=== PATIENT | female | born 1935 | race Caucasian/White ===

== ENCOUNTER 2018-08-30 16:26 | Observation (INO) ==
--- NOTE | 2018-08-30 16:57 | Emergency Department Note ---
Disposition Clinical Impression: GI bleed Qualifiers: GI bleed type/associated pathology: unspecified gastrointestinal hemorrhage type Qualified Code(s): K92.2 - Gastrointestinal hemorrhage, unspecified Anemia Qualifiers: Anemia type: iron deficiency Iron deficiency anemia type: chronic blood loss Qualified Code(s): D50.0 - Iron deficiency anemia secondary to blood loss (chronic) Disposition: Admitted As Inpatient Condition: Fair Referrals: Bear,Franchesca Farooq CNP [Primary Care Provider] - Forms: ED Satisfaction Letter General Adult HPI - General Chief complaint: ED Dizziness Stated complaint: Cough dizzy Time Seen by Provider: 08/30/18 16:31 Source: EMS Limitations: no limitations Nursing Notes Reviewed: Yes Vital Signs Reviewed: Yes - History of Present Illness Pain Scale: 0 - Related Data Home Medications Medication Instructions Recorded Confirmed Alendronate Sodium [Fosamax] 70 mg PO QWEEK 01/13/16 01/13/16 Celecoxib [Celebrex] 200 mg PO DAILY 01/13/16 01/13/16 Erythromycin OPTH Oint 1 appl OP BID 01/13/16 01/13/16 GuaiFENesin/Dextromethorphan 10 ml PO Q4H PRN 01/13/16 01/13/16 [Tussin Dm Syrup] Melatonin 5 mg PO HS 01/13/16 01/13/16 Mirabegron [Myrbetriq] 50 mg PO DAILY 01/13/16 01/13/16 Omeprazole [PriLOSEC] 20 mg PO PRN PRN 01/13/16 01/13/16 Previous Rx's Medication Instructions Recorded Albuterol Sulfate [Albuterol 1 puff IH Q6HR PRN #1 hfa.aer.ad 01/18/16 Inhaler] HYDROcodone BIT/Homatropine 5 mg PO Q12HR PRN #20 tablet 01/18/16 [Hycodan] levoFLOXacin [Levaquin] 500 mg PO DAILY #2 tablet 01/18/16 Benzonatate [Tessalon] 200 mg PO TID PRN #30 capsule 08/13/16 Doxycycline 100 mg PO BID #14 capsule 08/13/16 GuaiFENesin ER [Mucinex] 600 mg PO BID #20 tbbp.12hr 08/13/16 Azithromycin [Azithromycin 6-Tab 250 mg PO PER PKG DI #6 tab 07/29/17 Pack] Benzonatate [Tessalon] 200 mg PO TID PRN #30 capsule 07/29/17 Guaifenesin [Mucinex] 600 mg PO BID #20 tab.er.12h 07/29/17 Allergies Allergy/AdvReac Type Severity Reaction Status Date / Time lisinopril Allergy Anaphylaxis Verified 01/13/16 05:16 Sulfa (Sulfonamide AdvReac Flushing Verified 08/30/18 16:43 Antibiotics) Past Medical History - Past Medical History Medical history: Reports: GERD, hyperlipidemia, hypertension, osteoporosis, other Surgical history: Reports: appendectomy Psychiatric history: Reports: no psych history CHOIR DIRECTOR history: Reports: no CHOIR DIRECTOR history - Social History Smoking Status: Former smoker Smokeless Tobacco Status: No Alcohol use: Reports: occasionally Drug use: Reports: none Physical Exam - General Limitations: no limitations General appearance: alert, in no apparent distress Course Vital Signs Temperature 98.2 F 08/30/18 16:31 Pulse Rate 67 08/30/18 16:31 Respiratory Rate 18 08/30/18 16:31 Blood Pressure 143/69 08/30/18 16:31 O2 Sat by Pulse Oximetry 95 08/30/18 16:31 Temperature 98.2 F 08/30/18 16:31 Pulse Rate 67 08/30/18 18:03 Respiratory Rate 18 08/30/18 18:03 Blood Pressure 109/79 08/30/18 18:03 O2 Sat by Pulse Oximetry 95 08/30/18 18:03 Oxygen Delivery Oxygen Delivery Room Air Medical Decision Making - [facility] Narrative Medical decision making narrative: Chest X-Ray 08/30/18 16:54 IMPRESSION: No acute cardiopulmonary disease. D/ / Otis Ortega MD / Otis Ortega MD Interpreting Provider: Otis Ortega MD 1724 hrs.: Chest x-ray is back and shows nonacute pattern. Were waiting on labs. Then reassessment. 1810 hrs.: Guaiac is positive. No gross blood. She is a history of GERD's I wonder if she has had a slow bleed we have not had a labs in the last 6 months. And when they did that it was normal. Were going to bring her into the hospital with her syncope GI bleed and symptomatic anemia. - Lab Data Result diagrams: 08/30/18 16:55 08/30/18 16:55 Lab Results 08/30/18 08/30/18 08/30/18 Range/Units 16:55 16:55 17:41 WBC 7.7 (4.3-11.1) K/mcL RBC 4.51 (3.82-4.97) M/mcL Hgb 8.9 L (11.5-15.4) g/dL Hct 30.5 L (35.3-44.9) % MCV 67.6 L (83.0-100.0) fL MCH 19.7 L (28.0-33.3) pg MCHC 29.2 L (31.6-35.5) g/dL RDW 17.2 H (11.5-14.5) % Plt Count 254 (140-400) K/mcL MPV 9.1 L (9.4-12.4) fL Immature Gran % 0.3 (0-4) % Seg Neutrophils % 54.1 % Lymphocytes % 26.4 % Monocytes % 14.0 % Eosinophils % 4.4 % Basophils % 0.8 % Neutrophils # 4.2 (1.6-8.9) K/mcL Lymphocytes # 2.0 (0.6-4.6) K/mcL Monocytes # 1.1 (0.0-1.3) K/mcL Eosinophils # 0.3 (0.0-0.6) K/mcL Basophils # 0.1 (0.0-0.2) K/mcL Platelet Estimate Normal (Normal) Hypochromasia Present A (Not Present) Anisocytosis 1+ A (Not Present) Microcytosis Present A (Not Present) Sodium 137 (136-145) mEq/L Potassium 4.0 (3.5-5.1) mEq/L Chloride 105 (98-107) mEq/L Carbon Dioxide 21 L (23-29) mEq/L BUN 10 (8-23) mg/dL Creatinine 0.95 (0.60-1.20) mg/dL Est GFR ( Amer) > 60 (> 60) Est GFR (Non-Af Amer) 56 L (> 60) BUN/Creatinine Ratio 11 (6-26) Glucose 125 H (70-105) mg/dL Calculated Osmolality 285 (280-300) Calcium 9.0 (8.6-10.3) mg/dL Troponin I 0.03 (< 0.04) ng/mL Stool Occult Bld Scrn Positive A (Negative) Attestation Statement - Attestation Attestation: This documentation is done with the assistance of Dragon dictation. Despite efforts made to ensure accuracy, there may be inaccuracies in net software architect or spelling and typographical errors. I examined this patient and my medical decision-making was reviewed with the Resident Physician. I agree with the documented findings, disposition and treatment plan as described except to the extent set forth below. Patient seen and evaluated with Dr. Zaidi and myself, I agree with his evaluation management plan, supervise care the patient's stay. Patient has a new history of COPD. Today she had a spell where she coughed and got very dizzy lightheaded lasted a few seconds and went away. She said she feels better now she says she does not need a breathing treatment she has no chest pain. She is also being worked up for a chronic lower extremity weakness issue with neurology here and then she will be following up at [facility] for that but that is why she is here today. We will check labs on her she does not want a breathing treatment chest x-ray then reassess. She is in agreement with plan.
[2018-08-30 17:10] LABS: Basophils # 0.1 K/mcL (0.0-0.2); Basophils % 0.8 %; Eosinophils # 0.3 K/mcL (0.0-0.6); Eosinophils % 4.4 %; Hematocrit 30.5 % (35.3-44.9); Hemoglobin 8.9 g/dL (11.5-15.4); Immature Granulocytes % 0.3 % (0-4); Lymphocytes % 26.4 %; Mean Corpuscular HGB Conc 29.2 g/dL (31.6-35.5); Mean Corpuscular Hemoglobin 19.7 pg (28.0-33.3); Mean Corpuscular Volume 67.6 fL (83.0-100.0); Mean Platelet Volume 9.1 fL (9.4-12.4); Monocytes # 1.1 K/mcL (0.0-1.3); Neutrophils # 4.2 K/mcL (1.6-8.9); Platelet Count 254 K/mcL (140-400); Red Blood Count 4.51 M/mcL (3.82-4.97); Red Cell Distribution Width 17.2 % (11.5-14.5); Segmented Neutrophils % 54.1 %
[2018-08-30 17:31] LABS: BUN/Creatinine Ratio 11 (6-26); Blood Urea Nitrogen 10 mg/dL (8-23); Carbon Dioxide 21 mEq/L (23-29); Chloride 105 mEq/L (98-107); Glucose 125 mg/dL (70-105); Osmolality,Calculated 285 (280-300); Sodium 137 mEq/L (136-145); Troponin I 0.03 ng/mL (< 0.04); eGFR For Non-African Americans 56 (> 60)
[2018-08-30 17:35] LABS: Anisocytosis 1+ (Not Present); Microcytosis Present (Not Present); Platelet Estimate Normal (Normal)
[2018-08-30 17:36] LABS: Hypochromasia Present (Not Present)
--- NOTE | 2018-08-30 17:58 | Emergency Department Note ---
Disposition Clinical Impression: GI bleed Qualifiers: GI bleed type/associated pathology: unspecified gastrointestinal hemorrhage type Qualified Code(s): K92.2 - Gastrointestinal hemorrhage, unspecified Anemia Qualifiers: Anemia type: iron deficiency Iron deficiency anemia type: chronic blood loss Qualified Code(s): D50.0 - Iron deficiency anemia secondary to blood loss (chronic) Disposition: Admitted As Inpatient Condition: Fair Referrals: Franchesca Sifuentes CNP [Primary Care Provider] - Forms: ED Satisfaction Letter Time of Disposition: 19:02 General Adult HPI - General Chief complaint: ED Dizziness Stated complaint: Cough dizzy Time Seen by Provider: 08/30/18 16:31 Source: patient, EMS Mode of arrival: EMS Limitations: no limitations Nursing Notes Reviewed: Yes Vital Signs Reviewed: Yes - History of Present Illness HPI Narrative: Patient is a 83-year-old female past medical history of GERD, HLD, HTN and osteoporosis presents to the emergency department for evaluation of episode of dizziness that occurred prior to arrival. Patient states that yesterday she began having a cough as productive sputum that is yellowish/white. States she has a history of COPD which she is supposed to be taking inhaled steroids. States today she was sitting down and had a very hard coughing fit. States at that time she became dizzy with the room spinning which lasted about 5 minutes. States her symptoms resolved on their own. His at this time she is a symptomatically except for her cough. Patient also states that she is been getting worked up by Dr. Aparicio as well as Dr. Benoit for evaluation of bilateral lower extremity weakness since 6 months ago. Pain Scale: 0 - Related Data Home Medications Medication Instructions Recorded Confirmed Alendronate Sodium [Fosamax] 70 mg PO QWEEK 01/13/16 01/13/16 Celecoxib [Celebrex] 200 mg PO DAILY 01/13/16 01/13/16 Erythromycin OPTH Oint 1 appl OP BID 01/13/16 01/13/16 GuaiFENesin/Dextromethorphan 10 ml PO Q4H PRN 01/13/16 01/13/16 [Tussin Dm Syrup] Melatonin 5 mg PO HS 01/13/16 01/13/16 Mirabegron [Myrbetriq] 50 mg PO DAILY 01/13/16 01/13/16 Omeprazole [PriLOSEC] 20 mg PO PRN PRN 01/13/16 01/13/16 Previous Rx's Medication Instructions Recorded Albuterol Sulfate [Albuterol 1 puff IH Q6HR PRN #1 hfa.aer.ad 01/18/16 Inhaler] HYDROcodone BIT/Homatropine 5 mg PO Q12HR PRN #20 tablet 01/18/16 [Hycodan] levoFLOXacin [Levaquin] 500 mg PO DAILY #2 tablet 01/18/16 Benzonatate [Tessalon] 200 mg PO TID PRN #30 capsule 08/13/16 Doxycycline 100 mg PO BID #14 capsule 08/13/16 GuaiFENesin ER [Mucinex] 600 mg PO BID #20 tbbp.12hr 08/13/16 Azithromycin [Azithromycin 6-Tab 250 mg PO PER PKG DI #6 tab 07/29/17 Pack] Benzonatate [Tessalon] 200 mg PO TID PRN #30 capsule 07/29/17 Guaifenesin [Mucinex] 600 mg PO BID #20 tab.er.12h 07/29/17 Allergies Allergy/AdvReac Type Severity Reaction Status Date / Time lisinopril Allergy Anaphylaxis Verified 01/13/16 05:16 Sulfa (Sulfonamide AdvReac Flushing Verified 08/30/18 16:43 Antibiotics) All systems ED: reviewed and negative except as stated. Review of Systems: As Per HPI Constitutional: Reports: other (dizziness). Denies: fever, chills Cardiovascular: Denies: chest pain, palpitations, dyspnea on exertion, edema, syncope Respiratory: Reports: cough, dyspnea, sputum production. Denies: wheezes Gastrointestinal: Denies: abdominal pain, nausea, vomiting Genitourinary: Denies: urgency Musculoskeletal: Denies: back pain, neck pain Integumentary: Denies: rash Past Medical History - Past Medical History Attestation: Yes The following information was validated with the patient. 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 history - Social History Smoking Status: Former smoker Smokeless Tobacco Status: No Alcohol use: Reports: occasionally Drug use: Reports: none Physical Exam CONSTITUTIONAL: Well-appearing; well-nourished; A&O X 3, in no apparent distress HEAD: Normocephalic; atraumatic EYES: PERRL, no scleral icterus NOSE: The nose is normal in appearance without rhinorrhea NECK: No JVD or distended neck veins RESP: Normal chest excursion with respiration; breath sounds clear and equal bilaterally; no wheezes, rhonchi, or rales CARD: Regular rhythm, without murmurs, rub or gallop ABD: Non-distended; non-tender, soft, without rigidity, rebound or guarding,no pulsatile mass CHEST: No pain with palpation SKIN: Normal for age and race; warm and dry without diaphoresis ; no apparent lesions EXTREMITIES: Pulses are 2 plus and equal times 4 extremities, no peripheral edema or calf muscle pain - General Limitations: no limitations General appearance: alert, in no apparent distress Course Course Narrative: Patient one isolated episode of dizziness that occurred after a coughing fit which she currently has due to her bronchitis. Plan at this time is for the patient undergo evaluation for her dizziness which will include troponin, EKG as well as a chest x-ray. Also perform basic lab work. - Reevaluation(s) Reevaluation #1: Labwork is remarkable for hemoglobin of 8.9. Troponin was negative. EKG was nonischemic. The patient's hemoglobin is new when compared to old labs in January 2018 and appears to be a significant drop. She underwent rectal evaluation for blood and stool occult blood was positive. Discussed plan at this time Time: 18:34 Reevaluation #2: Discussed the patient's case with the hospitalist on-call, Dr. Patel and he agrees to accept the patient for further evaluation of her GI bleed. Time: 19:02 Vital Signs Temperature 98.2 F 08/30/18 16:31 Pulse Rate 67 08/30/18 16:31 Respiratory Rate 18 08/30/18 16:31 Blood Pressure 143/69 08/30/18 16:31 O2 Sat by Pulse Oximetry 95 08/30/18 16:31 Temperature 98.2 F 08/30/18 16:31 Pulse Rate 67 08/30/18 18:03 Respiratory Rate 18 08/30/18 18:03 Blood Pressure 109/79 08/30/18 18:03 O2 Sat by Pulse Oximetry 95 08/30/18 18:03 Oxygen Delivery Oxygen Delivery Room Air Medical Decision Making - Medical Records Medical records reviewed: Yes I reviewed the patient's medical records. - Lab Data Lab results reviewed: Yes I reviewed the patient's lab results. Result diagrams: 08/30/18 16:55 08/30/18 16:55 Lab Results 08/30/18 08/30/18 08/30/18 Range/Units 16:55 16:55 17:41 WBC 7.7 (4.3-11.1) K/mcL RBC 4.51 (3.82-4.97) M/mcL Hgb 8.9 L (11.5-15.4) g/dL Hct 30.5 L (35.3-44.9) % MCV 67.6 L (83.0-100.0) fL MCH 19.7 L (28.0-33.3) pg MCHC 29.2 L (31.6-35.5) g/dL RDW 17.2 H (11.5-14.5) % Plt Count 254 (140-400) K/mcL MPV 9.1 L (9.4-12.4) fL Immature Gran % 0.3 (0-4) % Seg Neutrophils % 54.1 % Lymphocytes % 26.4 % Monocytes % 14.0 % Eosinophils % 4.4 % Basophils % 0.8 % Neutrophils # 4.2 (1.6-8.9) K/mcL Lymphocytes # 2.0 (0.6-4.6) K/mcL Monocytes # 1.1 (0.0-1.3) K/mcL Eosinophils # 0.3 (0.0-0.6) K/mcL Basophils # 0.1 (0.0-0.2) K/mcL Platelet Estimate Normal (Normal) Hypochromasia Present A (Not Present) Anisocytosis 1+ A (Not Present) Microcytosis Present A (Not Present) Sodium 137 (136-145) mEq/L Potassium 4.0 (3.5-5.1) mEq/L Chloride 105 (98-107) mEq/L Carbon Dioxide 21 L (23-29) mEq/L BUN 10 (8-23) mg/dL Creatinine 0.95 (0.60-1.20) mg/dL Est GFR ( Amer) > 60 (> 60) Est GFR (Non-Af Amer) 56 L (> 60) BUN/Creatinine Ratio 11 (6-26) Glucose 125 H (70-105) mg/dL Calculated Osmolality 285 (280-300) Calcium 9.0 (8.6-10.3) mg/dL Troponin I 0.03 (< 0.04) ng/mL Stool Occult Bld Scrn Positive A (Negative) - Radiology Data Radiology results reviewed: Yes I reviewed the patient's radiology results. Chest X-Ray 08/30/18 16:54 IMPRESSION: No acute cardiopulmonary disease. D/ / Otis Ortega MD / Otis Ortega MD Interpreting Provider: Otis Ortega MD - EKG Data EKG #1 EKG attestation: Yes I reviewed and interpreted this EKG. EKG results narrative: EKG done at 16:32 shows sinus rhythm at a rate of 61 bpm. Normal axis. Intervals within normal limits. Patient does have T-wave inversions in the lateral leads which appear unchanged from an old EKG done in December 2015.
[2018-08-30] MEDS ORDERED: Naloxone 0.4 MG/ML INJ IVP PRN (20:34)
[2018-08-30 21:38] LABS: Alanine Aminotransferase 8 Units/L (7-52); Albumin 3.8 g/dL (3.5-5.7); Albumin/Globulin Ratio 1.2 (1.1-2.2); Alkaline Phosphatase 63 Units/L (34-104); Aspartate Amino Transferase 14 Units/L (13-39); BUN/Creatinine Ratio 9 (6-26); Bilirubin,Total 0.4 mg/dL (0.3-1.0); Blood Urea Nitrogen 9 mg/dL (8-23); Carbon Dioxide 26 mEq/L (23-29); Chloride 104 mEq/L (98-107); Globulin 3.3 g/dL (2.4-3.5); Glucose 115 mg/dL (70-105); Osmolality,Calculated 284 (280-300); Sodium 137 mEq/L (136-145); Total Protein 7.1 g/dL (6.4-8.9); eGFR For Non-African Americans 56 (> 60)
[2018-08-30] MEDS: traZODone 50 MG TABLET PO SCH (22:08)
[2018-08-30] MEDS: 0.9 % Sodium Chloride 1,000 ML IVC SCH (22:09)
[2018-08-30] MEDS: Benzonatate 100 MG CAPSULE PO PRN (22:09)
[2018-08-30] MEDS: Acetaminophen 325 MG TABLET PO PRN (22:09)
--- NOTE | 2018-08-30 23:59 | Internal Med History&Physical ---
Date of Encounter: 08/30/18 Time of Encounter: 23:57 Internal Medicine - H&P: HPI Chief complaint: Dizziness/cough History of present illness: Ms. De Jesus is a 83 year old female past medical history of GERD, HLD, HTN and osteoporosis presents to the emergency department for evaluation of episode of dizziness that occurred prior to arrival. Patient states that yesterday she feels like she caught a cold and began having a cough productive of yellowish/white sputum. Earlier today she was sitting down and began having a coughing spell. She subsequently became dizzy and felt as if the room was spinning. Symptoms lasted approximately 5 minutes before resolving. Patient subsequently called the squad. Patient denies any abdominal pain but states that she has been having dark stools for the past 4-5 days. She also reports loose stools for the past couple days as well which was also relatively new for her. Patient states she does not eat well. She reports having a colonoscopy approximately 10 years ago. Patient is currently not on any blood thinners. Guillermo mauro takes antibiotics chronically for chronic UTI. On arrival patient was hemodynamically stable. Initial Labwork was remarkable for hemoglobin of 8.9. Fecal occult blood testing was positive. Chest x-ray was performed which showed no acute cardiopulmonary disease. Patient was typed and screened and started on IV fluids. Case was discussed with gastroenterology who will see patient in the morning. Past Med Surg Social Fam HX - Past Medical History Medical history: GERD, hyperlipidemia, hypertension, osteoporosis, other Additional medical history: insomnia, Vit. D deficiency, joint pain Psychiatric history: no psych history - Past Surgical History Surgical History: appendectomy, cholecystectomy, hysterectomy, other Additional surgical history: rotator cuff repair left - Social History Smoking Status: Former smoker Smokeless Tobacco Status: No Alcohol use: occasionally Drug use: none Internal Medicine - H&P: Meds Albuterol Sulfate [Albuterol Inhaler] 1 puff IH Q6HR PRN #1 hfa.aer.ad 01/18/16 [Rx] Cephalexin [Keflex] 250 mg PO DAILY 08/30/18 [History] Cholecalciferol (D-3) [Vitamin D] 1,000 unit PO DAILY 08/30/18 [History] Cyanocobalamin (B-12) [Vitamin B12] 1,000 mcg PO DAILY 08/30/18 [History] Omeprazole [PriLOSEC] 40 mg PO DAILY 08/30/18 [History] Propranolol [Inderal] 10 mg PO BID 08/30/18 [History] traZODone [TraZODone] 25 mg PO HS 08/30/18 [History] Allergy/AdvReac Type Severity Reaction Status Date / Time lisinopril Allergy Anaphylaxis Verified 01/13/16 05:16 Sulfa (Sulfonamide AdvReac Flushing Verified 08/30/18 16:43 Antibiotics) All Systems PM: A 10-system review of systems was performed and is negative for pertinent findings except as documented above in the HPI. - Constitutional Constitutional: no chills, no fever(s), no night sweats - EENT Eyes: no change in vision, no discharge, no pain, no photophobia Ears: no ear discharge, no ear pain, no tinnitus Nose, mouth and throat: no dysphagia, no nasal discharge, no neck pain, no sore throat - Cardiovascular Cardiovascular ROS IM: no chest pain, no diaphoresis, no dyspnea, no lightheadedness, no palpitations, no syncope - Respiratory Respiratory: no cough, no dyspnea, no wheezing, no excessive phlegm production - Gastrointestinal Gastrointestinal: no abdominal pain, no diarrhea, no hematemesis, no hematochezia, no melena, no nausea, no vomiting - Genitourinary Genitourinary: no change in urinary stream, no dysuria, no flank pain, no hematuria - Musculoskeletal Musculoskeletal ROS IM: no numbness, no tingling - Integumentary Integumentary IM: no rash, no unusual bruising - Neurological Neurological ROS: no confusion, no convulsions, no focal weakness, no numbness, no tingling, no tremor(s) - Hematologic/Lymphatic Hematologic/Lymphatic: no easy bruising - Constitutional Vitals: Temp Pulse Resp BP Pulse Ox 98.9 F 76 16 111/71 93 08/30/18 23:00 08/30/18 23:00 08/30/18 23:00 08/30/18 23:00 08/30/18 23:00 Exam: General: Alert and oriented Skin:Normal color, no rash, no lesions. HEENT:EOM, pupils equal, round and reactive. Cardiovascular:Normal S1 & S2, no rubs, murmurs or gallops. No JVD. Pulse regular. Lungs:Normal breath sounds, no wheezes or crackles. Abdomen:Soft, non-tender, no rigidity. Positive bowel sounds Extremities:No deformity, no edema or tenderness, no joint swelling or clubbing. Neurological:Normal cognition and motor skills. Pulses:Carotid and radial pulses normal +2. Rest of the physical exam is non contributory Internal Med - H&P Results - Labs CBC & Chem 7: 08/31/18 03:54 08/30/18 20:53 Labs: Short CBC 08/30/18 Range/Units 16:55 WBC 7.7 (4.3-11.1) K/mcL Hgb 8.9 L (11.5-15.4) g/dL Hct 30.5 L (35.3-44.9) % Plt Count 254 (140-400) K/mcL Neutrophils # 4.2 (1.6-8.9) K/mcL BMP 08/30/18 08/30/18 16:55 20:53 Sodium 137 137 Potassium 4.0 4.0 Chloride 105 104 Carbon Dioxide 21 L 26 BUN 10 9 Creatinine 0.95 0.95 Glucose 125 H 115 H Calcium 9.0 9.0 Cardiac Enzymes 08/30/18 Range/Units 16:55 Troponin I 0.03 (< 0.04) ng/mL Liver Function 08/30/18 Range/Units 20:53 Total Bilirubin 0.4 (0.3-1.0) mg/dL AST 14 (13-39) Units/L ALT 8 (7-52) Units/L Alkaline Phosphatase 63 (34-104) Units/L Albumin 3.8 (3.5-5.7) g/dL - Impressions ITS Impressions Chest X-Ray 08/30/18 16:54 IMPRESSION: No acute cardiopulmonary disease. D/ / Otis Ortega MD / Otis Ortega MD Interpreting Provider: Otis Ortega MD - Assessment and plan (1) Anemia Current Visit: Yes Status: Acute Assessment and plan: Patient presents with symptomatic anemia with a hemoglobin of 8.9. Previous hemoglobin in February 2018 was greater than 14. Reports dark tarry stools over the past 4-5 days. She does have a history of GERD and is on PPI. Patient's BUN was not elevated. Given reported history of melena patient may have upper GI bleed. Currently hemodynamically stable. Case was discussed with Dr. Galvin call with gastroenterology will see the patient in the morning. -NPO -Type and screen -Monitor H&H -IV Protonix -Continue IV fluids -Gastroenterology consult Qualifiers: Anemia type: iron deficiency Iron deficiency anemia type: chronic blood loss Qualified Code(s): D50.0 - Iron deficiency anemia secondary to blood loss (chronic) (2) GI bleed Current Visit: Yes Status: Acute Assessment and plan: See "anemia" above. Qualifiers: GI bleed type/associated pathology: unspecified gastrointestinal hemorrhage type Qualified Code(s): K92.2 - Gastrointestinal hemorrhage, unspecified (3) Hypertension Current Visit: No Status: Acute Assessment and plan: Pressure stable. Monitor Qualifiers: Hypertension type: essential hypertension Qualified Code(s): I10 - Essential (primary) hypertension (4) DVT prophylaxis Current Visit: No Status: Acute Assessment and plan: Intermittent pneumatic compression device - Time Spent With Patient Total time spent is greater than 50% in coordination of care (as documented) at patient's floor/unit and/or counseling patient:
[2018-08-31] MEDS: Benzonatate 100 MG CAPSULE PO PRN ×3 (03:58→21:39)
[2018-08-31] MEDS: Acetaminophen 325 MG TABLET PO PRN ×3 (03:58→21:39)
[2018-08-31 04:56] LABS: Hematocrit 28.4 % (35.3-44.9); Hemoglobin 8.4 g/dL (11.5-15.4); Immature Granulocytes % 0.1 % (0-4); Lymphocytes % 29.2 %; Mean Corpuscular HGB Conc 29.6 g/dL (31.6-35.5); Mean Corpuscular Hemoglobin 20.1 pg (28.0-33.3); Mean Corpuscular Volume 68.1 fL (83.0-100.0); Mean Platelet Volume 9.6 fL (9.4-12.4); Monocytes % 15.7 %; Platelet Count 244 K/mcL (140-400); Red Blood Count 4.17 M/mcL (3.82-4.97); Segmented Neutrophils % 50.5 %
[2018-08-31 04:57] LABS: Basophils # 0.1 K/mcL (0.0-0.2); Basophils % 0.7 %; Eosinophils # 0.3 K/mcL (0.0-0.6); Eosinophils % 3.8 %; Lymphocytes # 2.1 K/mcL (0.6-4.6); Monocytes # 1.1 K/mcL (0.0-1.3); Neutrophils # 3.6 K/mcL (1.6-8.9)
[2018-08-31 05:04] LABS: Prothrombin Time 11.5 Seconds (9.4-12.1)
[2018-08-31 05:24] LABS: Platelet Estimate Normal (Normal)
[2018-08-31 05:25] LABS: Anisocytosis 1+ (Not Present); Hypochromasia Present (Not Present); Microcytosis Present (Not Present)
--- NOTE | 2018-08-31 08:59 | Anesthesia Evaluation PreOp ---
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: Other (admitted to hospital with new onset syncope, evaluation nega tive except for anemia) Other Medical History: GERD Anesthesia History: No Prior Anesthetic Complications, Past Anesthesia Alcohol Use: occasionally Drug use: none Medications and Allergies Albuterol Sulfate [Albuterol Inhaler] 1 puff IH Q6HR PRN #1 hfa.aer.ad 01/18/16 [Rx] Cephalexin [Keflex] 250 mg PO DAILY 08/30/18 [History] Cholecalciferol (D-3) [Vitamin D] 1,000 unit PO DAILY 08/30/18 [History] Cyanocobalamin (B-12) [Vitamin B12] 1,000 mcg PO DAILY 08/30/18 [History] Omeprazole [PriLOSEC] 40 mg PO DAILY 08/30/18 [History] Propranolol [Inderal] 10 mg PO BID 08/30/18 [History] traZODone [TraZODone] 25 mg PO HS 08/30/18 [History] Allergy/AdvReac Type Severity Reaction Status Date / Time lisinopril Allergy Anaphylaxis Verified 01/13/16 05:16 Sulfa (Sulfonamide AdvReac Flushing Verified 08/30/18 16:43 Antibiotics) - Meds/Allergy Pre-op Review Medications Reviewed: Yes Allergies Reviewed: Yes Beta Blockers on Current Med List: No Anesthesia Results - Labs 08/31/18 03:54 08/30/18 20:53 - Imaging EKG: report reviewed (sinus rhythm) Anesthesia Exam Selected Entries 08/31/18 06:43 Temperature 98.4 F Pulse Rate 77 Respiratory Rate 14 Blood Pressure 136/72 O2 Sat by Pulse Oximetry 93 Weight: 69 kg BMI 27 - HEENT Pupil (Motor): Pupils equal Mallampati: II Teeth: Normal Oral Opening: Greater than 3 - Cardiac Rhythm: Regular Murmur: None - Pulmonary Breath Sounds: bilateral Clear Respiratory Effort: Symmetrical Anesthesia Assess/Plan ASA Score: 2 Level of consciousness: Cooperative Anesthetic Plan: MAC Recovery Plan: Other (Discussed MAC anesthesia, agreed to proceed.)
[2018-08-31] MEDS ORDERED: cephALEXin 250 MG CAPSULE PO SCH (09:00)
[2018-08-31] MEDS: 0.9 % Sodium Chloride 1,000 ML IVC SCH ×2 (09:02→13:25)
[2018-08-31] MEDS ORDERED: Lidocaine -MPF 2% 2 ML VIAL ONE ×2 (09:33→09:34)
[2018-08-31] MEDS ORDERED: *HR* Propofol 200 MG/20 ML VIAL IVP ONE (09:34)
[2018-08-31] MEDS: Cyanocobalamin (B-12) 1,000 MCG TABLET PO SCH (10:31)
[2018-08-31] MEDS: Pantoprazole 40 MG VIAL IVP SCH (10:31)
[2018-08-31] MEDS: Cholecalciferol (D-3) 1,000 UNIT TABLET PO SCH (10:31)
--- NOTE | 2018-08-31 10:49 | Internal Med Progress Note ---
Hospitalist Progress Note - Encounter Date of Encounter: 08/31/18 Time of Encounter: 11:00 - Subjective Interval History: Patient reported of a 4-5 day history of dark tarry stools found to have acute anemia on admission. EGD revealed mild Schatzki ring which was dilated on EGD this morning in addition to gastritis Will have patient on a clear liquid diet for today per GI recommendations - Exam Vitals: Temp Pulse Resp BP Pulse Ox 98.7 F 84 15 166/69 93 08/31/18 10:31 08/31/18 10:31 08/31/18 10:31 08/31/18 10:31 08/31/18 10:31 Exam: Gen.: Nonacute distress, alert and oriented 3 ENT: Mucosal membranes moist Respiratory: Lungs are clear to auscultation bilaterally without any wheezing rhonchi or rales Cardiovascular: Normal S1 and S2 regular rate rhythm no murmurs rubs or gallops Abdomen: Soft, nontender and nondistended with positive bowel sounds Extremities: No lower extremity edema Skin: Normal color - Assessment and Plan (1) Anemia Current Visit: Yes Status: Acute Assessment and Plan: Reports dark tarry stools over the past 4-5 days. Patient presents with symptomatic anemia with a hemoglobin of 8.9. Previous hemoglobin in February 2018 was greater than 14. GI consulted with recommendations for EGD revealed mild Schatzki ring which was dilated on EGD this morning in addition to gastritis Will have patient on a clear liquid diet for today per GI recommendations (2) Schatzki's ring Current Visit: Yes Status: Acute Assessment and Plan: EGD revealed mild Schatzki ring which was dilated on EGD this morning Recommendations for clear liquid diet today and then to follow-up with GI in 3 weeks (3) Hypertension Current Visit: No Status: Acute Assessment and Plan: Controlled; continue patient's home dose of propranolol DVT Prophylaxis: Intermittent pneumatic compression device - Time Spent with Patient Total time spent is greater than 50% in coordination of care (as documented) at patient's floor/unit and/or counseling patient: Internal Medicine: Result - Labs CBC & Chem 7: 08/31/18 03:54 08/30/18 20:53 Labs: Short CBC 08/30/18 08/31/18 Range/Units 16:55 03:54 WBC 7.7 7.2 (4.3-11.1) K/mcL Hgb 8.9 L 8.4 L (11.5-15.4) g/dL Hct 30.5 L 28.4 L (35.3-44.9) % Plt Count 254 244 (140-400) K/mcL Neutrophils # 4.2 3.6 (1.6-8.9) K/mcL BMP 08/30/18 08/30/18 16:55 20:53 Sodium 137 137 Potassium 4.0 4.0 Chloride 105 104 Carbon Dioxide 21 L 26 BUN 10 9 Creatinine 0.95 0.95 Glucose 125 H 115 H Calcium 9.0 9.0 Cardiac Enzymes 08/30/18 Range/Units 16:55 Troponin I 0.03 (< 0.04) ng/mL Liver Function 08/30/18 Range/Units 20:53 Total Bilirubin 0.4 (0.3-1.0) mg/dL AST 14 (13-39) Units/L ALT 8 (7-52) Units/L Alkaline Phosphatase 63 (34-104) Units/L Albumin 3.8 (3.5-5.7) g/dL - ABG Interpretation ABG results: PT/INR, D-dimer PT 11.5 Seconds (9.4-12.1) 08/31/18 03:54 - Impressions Impressions Chest X-Ray 08/30/18 16:54 IMPRESSION: No acute cardiopulmonary disease. D/ / Otis Ortega MD / Otis Ortega MD Interpreting Provider: Otis Ortega MD Consult Discharge Plan - Plan Referrals: Franchesca Sifuentes, [facility] [Primary Care Provider] - (Your appointment has been requested, our offices will call you with an appointment time and date) _ (1) Anemia Qualifiers: Anemia type: iron deficiency Iron deficiency anemia type: chronic blood loss Qualified Code(s): D50.0 - Iron deficiency anemia secondary to blood loss (chronic) (3) Hypertension Qualifiers: Hypertension type: essential hypertension Qualified Code(s): I10 - Essential (primary) hypertension
[2018-08-31 20:38] LABS: Basophils % 0.5 %; Eosinophils # 0.1 K/mcL (0.0-0.6); Eosinophils % 1.7 %; Hematocrit 30.5 % (35.3-44.9); Hemoglobin 8.9 g/dL (11.5-15.4); Immature Granulocytes % 0.3 % (0-4); Lymphocytes # 1.4 K/mcL (0.6-4.6); Lymphocytes % 18.2 %; Mean Corpuscular HGB Conc 29.2 g/dL (31.6-35.5); Mean Corpuscular Volume 68.7 fL (83.0-100.0); Mean Platelet Volume 9.1 fL (9.4-12.4); Monocytes # 0.9 K/mcL (0.0-1.3); Monocytes % 12.2 %; Neutrophils # 5.1 K/mcL (1.6-8.9); Platelet Count 237 K/mcL (140-400); Red Blood Count 4.44 M/mcL (3.82-4.97); Red Cell Distribution Width 16.7 % (11.5-14.5); Segmented Neutrophils % 67.1 %
[2018-08-31 21:00] LABS: BUN/Creatinine Ratio 7 (6-26); Blood Urea Nitrogen 6 mg/dL (8-23); Calcium 8.8 mg/dL (8.6-10.3); Carbon Dioxide 24 mEq/L (23-29); Chloride 106 mEq/L (98-107); Glucose 120 mg/dL (70-105); Osmolality,Calculated 285 (280-300); Potassium 3.7 mEq/L (3.5-5.1); Sodium 138 mEq/L (136-145); eGFR For Non-African Americans > 60 (> 60)
[2018-08-31 21:08] LABS: Hypochromasia Present (Not Present); Microcytosis Present (Not Present)
[2018-08-31] MEDS: traZODone 50 MG TABLET PO SCH (21:39)
[2018-09-01] MEDS: Acetaminophen 325 MG TABLET PO PRN (06:16)
[2018-09-01] MEDS: Benzonatate 100 MG CAPSULE PO PRN (06:16)
--- NOTE | 2018-09-01 08:48 | Gastroenterology Progress Note ---
Date of Encounter: 09/01/18 Time of Encounter: 09:15 - Time Spent With Patient Total time spent is greater than 50% in coordination of care (as documented) at patient's floor/unit and/or counseling patient: - Subjective Interval history: Patient reported of a 4-5 day history of dark tarry stools found to have acute anemia on admission. EGD revealed mild Schatzki ring which was dilated on EGD this morning in addition to gastritis Will have patient on a clear liquid diet for today per GI recommendations - Constitutional Vitals: Temp Pulse Resp BP Pulse Ox 98.3 F 90 15 153/82 95 09/01/18 06:38 09/01/18 06:38 09/01/18 06:38 09/01/18 06:38 09/01/18 06:38 Results - Labs CBC & Chem 7: 08/31/18 20:18 08/31/18 20:18 Labs: Last Result Calcium 8.8 mg/dL (8.6-10.3) 08/31/18 20:18 Troponin I 0.03 ng/mL (< 0.04) 08/30/18 16:55 Entire Visit Hgb 8.9 g/dL (11.5-15.4) L 08/31/18 20:18 Hct 30.5 % (35.3-44.9) L 08/31/18 20:18 PT 11.5 Seconds (9.4-12.1) 08/31/18 03:54 Total Bilirubin 0.4 mg/dL (0.3-1.0) 08/30/18 20:53 AST 14 Units/L (13-39) 08/30/18 20:53 ALT 8 Units/L (7-52) 08/30/18 20:53 - ABG ABG results: PT/INR, D-dimer PT 11.5 Seconds (9.4-12.1) 08/31/18 03:54 Consult Discharge Plan - Plan Referrals: Franchesca Sifuentes CNP [Primary Care Provider] - (Your appointment has been requested, our offices will call you with an appointment time and date)
[2018-09-01] MEDS: Cholecalciferol (D-3) 1,000 UNIT TABLET PO SCH (09:17)
[2018-09-01] MEDS: Pantoprazole 40 MG VIAL IVP SCH (09:17)
[2018-09-01] MEDS: Cyanocobalamin (B-12) 1,000 MCG TABLET PO SCH (09:17)
[2018-09-01] MEDS: 0.9 % Sodium Chloride 1,000 ML IVC SCH (09:23)
[2018-09-01 15:48] LABS: Basophils # 0.1 K/mcL (0.0-0.2); Basophils % 0.8 %; Eosinophils # 0.3 K/mcL (0.0-0.6); Hematocrit 30.4 % (35.3-44.9); Hemoglobin 8.8 g/dL (11.5-15.4); Immature Granulocytes % 0.3 % (0-4); Lymphocytes # 2.4 K/mcL (0.6-4.6); Lymphocytes % 33.3 %; Mean Corpuscular HGB Conc 28.9 g/dL (31.6-35.5); Mean Corpuscular Volume 68.9 fL (83.0-100.0); Monocytes # 1.1 K/mcL (0.0-1.3); Monocytes % 14.7 %; Neutrophils # 3.4 K/mcL (1.6-8.9); Platelet Count 244 K/mcL (140-400); Red Blood Count 4.41 M/mcL (3.82-4.97); Segmented Neutrophils % 46.9 %
[2018-09-01 15:49] VITALS: BP 144/84
[2018-09-01 16:04] LABS: Hypochromasia Present (Not Present); Microcytosis Present (Not Present)
[2018-09-01 16:05] LABS: Platelet Estimate Normal (Normal)
--- NOTE | 2018-09-01 17:16 | Discharge Summary ---
- NOTES TO OUTPATIENT PROVIDER Notes to Outpatient Provider: Follow-up with GI as an outpatient Orders not resulted at time of discharge: Pending orders 08/30/18 16:30 EKG [ECG 12 lead ECG] [ECG] Stat 08/31/18 10:00 Surgical Pathology [PTH] Routine Date of Encounter: 09/01/18 Time of Encounter: 11:00 - Discharge Diagnosis (1) Anemia Priority: Primary Status: Acute Qualifiers: Anemia type: iron deficiency Iron deficiency anemia type: chronic blood loss Qualified Code(s): D50.0 - Iron deficiency anemia secondary to blood loss (chronic) (2) Schatzki's ring Priority: Primary Status: Acute (3) Hypertension Priority: Secondary Status: Acute Qualifiers: Hypertension type: essential hypertension Qualified Code(s): I10 - Essential (primary) hypertension Hospital course: Patient is an 83-year-old female with past medical history significant for GERD, HLD, HTN and osteoporosis presents to the emergency department for evaluation of episode of dizziness that occurred prior to arrival. Patient states that yesterday she feels like she caught a cold and began having a cough productive of yellowish/white sputum. Earlier today she was sitting down and began having a coughing spell. She subsequently became dizzy and felt as if the room was spinning. Symptoms lasted approximately 5 minutes before resolving. Patient subsequently called the squad. Patient also c/o dark stools for the past 4-5 days. In the ER, patient was found to have a hemoglobin of 8.9. Fecal occult blood testing was positive. Chest x-ray was performed which showed no acute cardiopulmonary disease. Patient was typed and screened and started on IV fluids. Case was discussed with gastroenterology who will see patient in the morning. During patients hospital stay EGD was done which revealed mild Schatzki ring that was dilated in addition to gastritis but no acute bleeding identified. Recommendations per GI for patient to follow-up as an outpatient for colonoscopy. Patients hemoglobin remained stable and will be discharged to be monitored by primary care provider as an outpatient. - Time Spent with Patient Total time spent providing and/or coordinating discharge services: - Discharge Medications Home Medications: Albuterol Sulfate [Albuterol Inhaler] 1 puff IH Q6HR PRN #1 [email or web address] 01/18/16 [Rx] Cephalexin [Keflex] 250 mg PO DAILY 08/30/18 [History] Cholecalciferol (D-3) [Vitamin D] 1,000 unit PO DAILY 08/30/18 [History] Cyanocobalamin (B-12) [Vitamin B12] 1,000 mcg PO DAILY 08/30/18 [History] Omeprazole [PriLOSEC] 40 mg PO DAILY 08/30/18 [History] Propranolol [Inderal] 10 mg PO BID 08/30/18 [History] traZODone [TraZODone] 25 mg PO HS 08/30/18 [History] Allergies/Adverse Reactions: Allergy/AdvReac Type Severity Reaction Status Date / Time lisinopril Allergy Anaphylaxis Verified 01/13/16 05:16 Sulfa (Sulfonamide AdvReac Flushing Verified 08/30/18 16:43 Antibiotics) Date of admission: 08/30/18 20:26 Primary care physician: Franchesca Sifuentes CNP Consults: 08/30/18 20:37 Consult to Gastroenterology [CONS] Routine Consulting Provider: [facility] [place] Reason for Consult: GI Bleed Call Completed: No - Constitutional Vitals: Temp Pulse Resp BP Pulse Ox 97.8 F 78 16 144/84 95 09/01/18 15:48 09/01/18 15:48 09/01/18 15:48 09/01/18 15:48 09/01/18 15:48 Exam: Gen.: Nonacute distress, alert and oriented 3 ENT: Mucosal membranes moist Respiratory: Lungs are clear to auscultation bilaterally without any wheezing rhonchi or rales Cardiovascular: Normal S1 and S2 regular rate rhythm no murmurs rubs or gallops Abdomen: Soft, nontender and nondistended with positive bowel sounds Extremities: No lower extremity edema Skin: Normal color - Patient Status Disposition: Home, Self-Care Condition: Fair - Discharge Instructions Instructions: Acute Respiratory Distress Syndrome (DC), Sepsis (DC), Chronic Hypertension (DC), Anemia (GEN), Pneumonia (DC) Follow Up With: Franchesca Sifuentes CNP [Primary Care Provider] - (Your appointment has been requested, our offices will call you with an appointment time and date)
--- NOTE | 2018-09-02 13:56 | Electrocardiograph Report ---
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
== END 2018-09-01 19:10 | disposition home or self-care (01) ==
LOC: EMEROOARM 16:26 → 3BNU 16:26 → SUATTDRO 20:26 → 3BNU 20:29
PROVIDERS: ADMIT Internal Medicine; ATTEND Hospitalist
PROC: ENDOEBX (2018-08-31 09:30)